=== PATIENT | male | born 1980 | race Caucasian/White ===

== ENCOUNTER 2021-04-16 19:44 | Emergency (ER) | payer BC ==
[~2021-04-16] VITALS: Ht 177.8 cm; Wt 89.3 kg
[2021-04-16 19:58] VITALS: BP 115/77
== END 2021-04-16 21:11 | disposition home or self-care (01) ==
LOC: ER 19:45
DX: U07.1 COVID-19 (principal); Z88.8 Allergy status to other drugs, medicaments and biological substances
CPT/HCPCS: 87635; 99283; C9803

== ENCOUNTER 2022-11-11 21:56 | Emergency (ER) | payer BC, OTHER ==
[~2022-11-11] VITALS: Ht 177.8 cm; Wt 89.1 kg
[2022-11-11 22:07] VITALS: BP 143/98
[2022-11-11] MEDS ORDERED: BENZ-38 PO ×3 (23:06→23:24)
[2022-11-11] MEDS ORDERED: ALBU8HFA PO ×3 (23:06→23:24)
[2022-11-11] MEDS ORDERED: GUAI400T92 PO ×3 (23:06→23:24)
[2022-11-11] MEDS ORDERED: benzonatate 100mg capsule PO ONE (23:10)
== END 2022-11-11 23:35 | disposition home or self-care (01) ==
LOC: ER 21:57
DX: R05.9 Cough, unspecified (principal); R11.0 Nausea; Z88.5 Allergy status to narcotic agent; Z79.899 Other long term (current) drug therapy
CPT/HCPCS: 99283

== ENCOUNTER 2023-01-23 22:19 | Emergency (ER) | payer OTHER ==
[~2023-01-23] VITALS: Ht 157.5 cm; Wt 105.0 kg
[~2023-01-23 22:19] MED LIST: ALBU8HFA PO; BENZ-38 PO; GUAI400T92 PO
[2023-01-23 23:07] VITALS: BP 138/98
[2023-01-24] MEDS ORDERED: IBUP-860 PO (00:08)
== END 2023-01-24 00:12 | disposition home or self-care (01) ==
LOC: ER 22:19
DX: M79.641 Pain in right hand (principal); Z88.5 Allergy status to narcotic agent; X58.XXXA Exposure to other specified factors, initial encounter; Y93.89 Activity, other specified; Y92.89 Other specified places as the place of occurrence of the external cause; Y99.8 Other external cause status
CPT/HCPCS: 29130; 73130; 99283

== ENCOUNTER 2023-03-18 19:47 | Emergency (ER) | payer OTHER ==
[~2023-03-18] VITALS: Ht 177.8 cm; Wt 100.0 kg
[~2023-03-18 19:47] MED LIST changes: +IBUP-860 PO
[2023-03-18 20:07] LABS: BASOPHILS % (AUTO) 0.7 % (0-1); EOSINOPHILS # (AUTO) 0.1 X10'3 (0-0.9); EOSINOPHILS % (AUTO) 1.9 % (0-6); HEMATOCRIT 43.8 % (42.0-52.0); HEMOGLOBIN 15.5 g/dl (14.0-17.9); LYMPHOCYTES # (AUTO) 2.1 X10'3 (1.1-4.8); LYMPHOCYTES % (AUTO) 29.9 % (21-51); MEAN CORPUSCULAR HEMOGLOBIN 29.1 PG (27.0-31.0); MEAN CORPUSCULAR HGB CONC 35.3 g/dL (33.0-36.5); MEAN CORPUSCULAR VOLUME 82.6 FL (78-98); MEAN PLATELET VOLUME 7.6 FL (7.4-10.4); MONOCYTES # (AUTO) 0.7 X10'3 (0-0.9); MONOCYTES % (AUTO) 9.3 % (2-12); NEUTROPHILS # (AUTO) 4.1 X10'3 (1.8-7.7); NEUTROPHILS % (AUTO) 58.2 % (42-75); PLATELET COUNT 265 X10'3 (140-440); RED BLOOD COUNT 5.31 X10'6 (4.70-6.10); RED CELL DISTRIBUTION WIDTH 14.5 % (11.5-14.5); WHITE BLOOD COUNT 7.1 X10'3 (4.5-11.0)
[2023-03-18 20:15] LABS: ALANINE AMINOTRANSFERASE 60 U/L (12-78); ALBUMIN 3.6 G/DL (3.4-5.0); ALBUMIN/GLOBULIN RATIO 0.9 (1.1-1.5); ALKALINE PHOSPHATASE 66 IU/L (46-116); ANION GAP 12 (8-16); ASPARTATE AMINO TRANSFERASE 24 U/L (10-37); BILIRUBIN,TOTAL 0.5 MG/DL (0.1-1.0); BLOOD UREA NITROGEN 14 MG/DL (7-18); BUN/CREATININE RATIO 14.9 (10.0-20.0); CHLORIDE 105 MMOL/L (99-107); CREATININE 0.94 MG/DL (0.60-1.10); GLUCOSE 103 MG/DL (70-104); POTASSIUM 3.9 MMOL/L (3.5-5.1); SODIUM 140 MMOL/L (135-145); TOTAL CARBON DIOXIDE 23.4 MMOL/L (24-32); TOTAL PROTEIN 7.4 G/DL (6.4-8.2); eGFR 89 ML/MIN
[2023-03-18 21:24] VITALS: TEMP 97.8
[2023-03-19 01:13] VITALS: BP 127/89; PULSE 87; RESP 14; O2SAT 98
[2023-03-19] MEDS ORDERED: famotidine 20mg tablet PO ONE (01:15)
[2023-03-19] MEDS ORDERED: pantoprazole 40mg Tablet.DR PO ONE (01:15)
== END 2023-03-19 01:33 | disposition home or self-care (01) ==
LOC: ER 19:47
DX: R07.89 Other chest pain (principal); Z88.5 Allergy status to narcotic agent; Z79.899 Other long term (current) drug therapy
CPT/HCPCS: 36415; 71045; 80053; 83880; 84484; 85025; 93005; 99285

== ENCOUNTER 2023-09-08 18:49 | Emergency (ER) | payer OTHER ==
[~2023-09-08] VITALS: Ht 177.8 cm; Wt 12.7 kg
[2023-09-08] MEDS ORDERED: ketorolac trometh. 30mg/ml inj. IM ONE (21:35)
[2023-09-08] MEDS ORDERED: IBUP-1984 PO (22:49)
[2023-09-08 22:59] VITALS: BP 137/104; PULSE 84; RESP 18; TEMP 98.2; O2SAT 99
== END 2023-09-08 23:01 | disposition home or self-care (01) ==
LOC: ER 18:49
DX: S83.8X1A Sprain of other specified parts of right knee, initial encounter (principal); W18.39XA Other fall on same level, initial encounter; Y93.89 Activity, other specified; Y92.89 Other specified places as the place of occurrence of the external cause; Y99.8 Other external cause status
CPT/HCPCS: 29505; 73552; 73590; 96372; 99284; J1885